=== PATIENT | female | born 1970 | race Caucasian/White ===

== ENCOUNTER 2017-07-22 21:36 | Emergency (ER) | payer SELFPAY ==
[2017-07-22 21:47] VITALS: O2SAT 97
[2017-07-22] MEDS ORDERED: IBUPROFEN 600 MG TAB PO ONE (21:48)
--- NOTE | 2017-07-22 21:52 | EDPHY ---
H & P Stated Complaint: l ankle pain after fall Time Seen by Provider: 07/22/17 21:51 HPI/ROS: HPI: This is a 47-year-old female presents with Chief Complaint: left ankle pain after fall Location: Left foot Quality: Injury Duration: 7 hours ago Signs and Symptoms: No bleeding, no radiation, no numbness, no weakness, no tingling, no incontinence, no decreased range of motion Timing: Acute, gradually worsening Severity: Moderate Context: Patient reports that she was skateboarding with her nephew this evening around 5:30 p.m. when she lost her footing and twisted her left foot and ankle. She does not feel a pop but she felt pain, nonradiating, moderate in nature that has gradually worsened over the last several hours. She is now unable to bear weight. She is concerned as she is scheduled to fly back to [place] tomorrow. Modifying Factors: Has not tried any [id number] medications or applied ice Comment: ROS: see HPI Constitutional: No fever, no chills, no weight loss Eyes: No blurred vision Respiratory: No shortness of breath, no cough Cardiovascular: No chest pain Gastrointestinal: No nausea, no vomiting no diarrhea Genitourinary: No dysuria Extremities: No myalgias Neurologic: No weakness, no numbness Skin: No rashes Hematologic: No bruising, no bleeding MEDICAL/SURGICAL/SOCIAL HISTORY: Medical history: Generally healthy. Does not take any regular medications. Surgical history: Incarcerated hernia with resection Social history: visiting family from [place] CONSTITUTIONAL: Pleasant adult white female, awake and alert, no obvious distress HEENT: Atraumatic and normocephalic, PERRL, EOMI. Tympanic membranes clear. Oropharynx clear, no exudate and moist pink mucosa. Airway patent. No lymphadenopathy. No meningismus. Cardiovascular: Normal S1/S2, regular rate, regular rhythm, without murmur rub or gallop. PULMONARY/CHEST: Symmetrical and nontender. Clear to auscultation bilaterally. Good air movement. No accessory muscle usage. ABDOMEN: Soft, nondistended, nontender, no rebound, no guarding, no peritoneal signs, no masses or organomegaly. No CVAT. EXTREMITIES: 2/2 pulses, Left Ankle; tenderness to palpation over the midfoot; no swelling/deformity/ecchymosis appreciated. Plantar flexion to 50, dorsiflexion to 20. Foot inversion to 35 degree. No tenderness to palpation Anterior talofibular ligament. No tenderness to palpation Calcaneofibular ligament, no tenderness to palpation posterior talofibular ligament, no tenderness to palpation posterior inferior tibiofibular ligament. Achilles tendon intact. no deformities, no clubbing, no cyanosis or edema. NEUROLOGICAL: no focal neuro deficits. GCS 15. SKIN: Warm and dry, no erythema. no rash. Good capillary refill. Source: Patient Exam Limitations: No limitations - Personal History LMP (Females 10-55): Post Menopausal Current Tetanus/Diphtheria Vaccine: Unsure Current Tetanus Diphtheria and Acellular Pertussis (TDAP): Unsure - Medical/Surgical History Hx Asthma: No Hx Chronic Respiratory Disease: No Hx Diabetes: No Hx Cardiac Disease: No Hx Renal Disease: No Hx Cirrhosis: No Hx Alcoholism: No Hx HIV/AIDS: No Hx Splenectomy or Spleen Trauma: No Other PMH: appy. 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 Procedures: Procedure: Splint placement. A left walking boot was applied by the Emergency Room vein access technician. After application of the splint I returned and re-examined the patient. The splint was adequately immobilizing the joint and distal to the splint the patient's circulation and sensation was intact. ED Course/Re-evaluation: X-ray and oral medication ordered No signs of neurovascular compromise/tenting of skin/compartment syndrome/ extremities and joints examined above and below area of concern and are neurovascularly intact. X-ray my read via PAC shows no acute fracture/dislocation Placed in walking boot and given crutches as concern for Lisfranc fracture Patient given x-rays on disc as she is returning to [place] tomorrow. Differential Diagnosis: Differential diagnosis includes but is not limited to sprain, Lis Franc fracture , contusion, nerve injury. - Data Points Medications Given: Discontinued Medications Ibuprofen (Motrin) 600 mg PO EDNOW ONE Stop: 07/22/17 21:49 Last Admin: 07/22/17 21:53 Dose: 600 mg Departure - Departure Disposition: Home, Routine, Self-Care Clinical Impression: Injury of foot, left Qualifiers: Encounter type: initial encounter Qualified Code(s): S99.922A - Unspecified injury of left foot, initial encounter Sprain of left foot Qualifiers: Encounter type: initial encounter Qualified Code(s): S93.602A - Unspecified sprain of left foot, initial encounter Condition: Good Instructions: Foot Fracture in Adults (ED), Foot Sprain (ED), RICE Therapy (ED) Additional Instructions: Wear walking boot and use crutches until pain free or seen by Orthopedics. Take ibuprofen 600 mg every 6-8 hours with food as needed for pain and inflammation. Apply ice for 30 minutes at a time; 2-3 times per day for the next 1-2 days. Follow up with Orthopedics in 5-7 days if symptoms persist or worsen. The x-rays obtained in the emergency department today demonstrate no evidence of an obvious fracture. Sometimes fractures are not obvious on the initial set of x-rays performed in the ED. For this reason, you should have repeat x-rays performed in 7-10 days if you are having any pain exclude the possibility of an occult fracture. Referrals: Charlie Pena MD [Medical Doctor] - As per Instructions
[2017-07-22] MEDS ORDERED: HYDROCOD/APAP 5/325 PREPACK#6 BTL TAKEHOME ONE (22:06)
[2017-07-22 22:53] VITALS: BP 127/91; PULSE 77; RESP 16; TEMP 98.1
== END 2017-07-22 22:53 | disposition home or self-care (01) ==
DX: S93.602A Unspecified sprain of left foot, initial encounter (principal); V00.138A Other skateboard accident, initial encounter; Y99.8 Other external cause status; Y93.51 Activity, roller skating (inline) and skateboarding
CPT/HCPCS: L4386